=== PATIENT | male | born 1965 | race Caucasian/White ===

== ENCOUNTER 2017-08-30 19:28 | Emergency (ER) | END 2017-08-30 22:17 | disposition home or self-care (01) | DX: G40.909 Epilepsy, unspecified, not intractable, without status epilepticus (principal); R40.2252 Coma scale, best verbal response, oriented, at arrival to emergency department; G93.0 Cerebral cysts; R40.2142 Coma scale, eyes open, spontaneous, at arrival to emergency department; R40.2362 Coma scale, best motor response, obeys commands, at arrival to emergency department; R07.9 Chest pain, unspecified | CPT/HCPCS: 36415; 70450; 80053; 83690; 84484; 85025; 96374; 99285; J1953; J7030 ==